=== PATIENT | female | born 1935 | race Caucasian/White ===

== ENCOUNTER 2016-07-19 16:20 | Emergency (ER) | payer BC ==
[~2016-07-19 16:20] MED LIST: ADVAIR INH; AREDS PRESERVISION PO; ATEN25 PO; ATEN50 PO; ATENOLOL; ATENOLOL PO; Advair Diskus INH; COZAAR100 MG PO; FOLIC PO; INHALER; JANTOVEN2.5 MG PO; KLOR-CON 1010 MEQ PO; KLOR-CON M1010 MEQ PO; L40 PO; METAMUCIL CAN7 OZ PO; MTX2.5 PO; NEUR300 PO; PCET PO; PRESER VISION PO; PRILO PO; TREXALL5 MG PO; hydrocortisone TOP; preservision PO-DS
[2016-07-22] MEDS ORDERED: VITAMIN B-121000 MC1 SL (09:03)
[2016-07-22] MEDS ORDERED: CARTIA XT120 MG/24 PO (09:05)
[2016-07-22] MEDS ORDERED: BUM2 PO (09:06)
[2016-07-22] MEDS ORDERED: Z100 PO (09:07)
[2016-07-22] MEDS ORDERED: ELIQUIS 5 MG TAB5 MG PO (09:07)
[2016-07-22] MEDS ORDERED: VITAMIN D2000 UNIT PO (09:08)
[2016-07-22] MEDS ORDERED: ZANTAC150 MG PO (09:10)
[2016-07-22] MEDS ORDERED: PRILOSEC OTC20 MG PO (09:11)
== END 2016-07-19 16:37 | disposition home or self-care (01) ==
LOC: ER 16:20
DX: S09.90XA Unspecified injury of head, initial encounter (principal); S16.1XXA Strain of muscle, fascia and tendon at neck level, initial encounter; S80.811A Abrasion, right lower leg, initial encounter; Z95.0 Presence of cardiac pacemaker; Z88.0 Allergy status to penicillin; Z88.2 Allergy status to sulfonamides; Z79.01 Long term (current) use of anticoagulants; Z79.891 Long term (current) use of opiate analgesic; W01.0XXA Fall on same level from slipping, tripping and stumbling without subsequent striking against object, initial encounter; Y93.9 Activity, unspecified; Y92.012 Bathroom of single-family (private) house as the place of occurrence of the external cause
CPT/HCPCS: 70450; 72040; 99284

== ENCOUNTER 2016-07-24 09:38 | Day surgery (SDC) | payer BC ==
--- NOTE | ~2016-07-24 | EGD ---
EGD REPORT [facility] [address] [id number] NAME: TILA BARAJAS : [birth year] STATUS : REG [facility]#: [id number] AGE: 81 ADM/REG DATE : 07/24/16 MR#: [id number] REPORT SERV DATE: 07/24/16 DICTATED BY: TERRANCE LOPES DATE: 07/24/16 REPORT STATUS : Draft TRANSCRIBED BY: [facility] DATE: 07/24/16 Pulmonology Patient Name: Tila Barajas Procedure Date: 07/24/2016 2:16 PM Date of : 1935 Attending MD: ALIS LOPES MD Procedure Date No Time: 07/24/2016 Procedure: EBUS Navigational Bronchoscopy Indications: VINCE lung nodule, sarcoidosis Providers: ALIS LOPES MD Referring MD: Sol Westbrook Medicines: Lidocaine 2% 20 mL Complications: No immediate complications Procedure: Pre-Anesthesia Assessment: - A History and Physical has been performed. Patient meds and allergies have been reviewed. The risks and benefits of the procedure and the sedation options and risks were discussed with the patient. All questions were answered and informed consent was obtained. Patient identification and proposed procedure were verified prior to the procedure by the physician and the nurse in the pre-procedure area in the procedure room. Mental Status Examination: normal. Respiratory Examination: clear to auscultation. CV Examination: normal and RRR, no murmurs, no S3 or S4. ASA Grade Assessment: IV - A patient with severe systemic disease that is a constant threat to life. After reviewing the risks and benefits, the patient was deemed in satisfactory condition to undergo the procedure. The anesthesia plan was to use general anesthesia. Immediately prior to administration of medications, the patient was re-assessed for adequacy to receive sedatives. The heart rate, respiratory rate, oxygen saturations, blood pressure, adequacy of pulmonary ventilation, and response to care were monitored throughout the procedure. The physical status of the patient was re-assessed after the procedure. After obtaining informed consent, the BF [id number] was introduced through the mouth, via the endotracheal tube (the patient was intubated for the procedure) and advanced to the tracheobronchial tree. the Bronchoscope was introduced through the mouth, via the endotracheal tube (the patient was intubated for the procedure) and advanced to the tracheobronchial tree. The procedure was accomplished without difficulty. The patient tolerated the procedure well. EGD REPORT [address] [address] NAME: TILA BARAJAS : [birth year] STATUS : REG [facility] PAT#: [id number] AGE: 81 ADM/REG DATE : 07/24/16 MR#: [id number] REPORT SERV DATE: 07/24/16 DICTATED BY: TERRANCE LOPES DATE: 07/24/16 REPORT STATUS : Draft TRANSCRIBED BY: [employer] DATE: 07/24/16 Findings: The endotracheal tube is in normal position. The trachea is of normal caliber. The kvng is sharp. The tracheobronchial tree was examined to at least the first subsegmental level. Bronchial mucosa and anatomy are normal; there are no endobronchial lesions, and no secretions. EBUS TBNA of lymph node level 11R x 8 passes for cytology EBUS TBNA of lymph node level 4R x 8 passes for cytology EBUS TBNA of lymph node level 7 x 4 passes for cytology EBUS TBNA of lymph node level 4L x 4 passes for cytology EBUS TBNA of lymph node level 11L x 8 passes for cytology Using SuperDimension Edge catheter 180, peripheral probe EBUS 17s, and fluoroscopy, I performed the following biopsies: VINCE lung nodule transbronchial needle aspirates x 6 passes for cytology VINCE lung nodule transbronchial brush biopsy x 1 pass for cytology VINCE lung nodule transbronchial tri needle brush biopsy x 1 pass for cytology VINCE lung nodule transbronchial gencut x 1 pass for cytology VINCE lung nodule transbronchial forcep biopsies x 7 passes for histopathology Bronchoalveolar lavage was performed in the left upper lobe of the lung and sent for routine cytology. 120 mL of fluid were instilled. 20 mL were returned. The return was bloody. Impression: Rapid On-Site Evaluation (CECE): Preliminary cytology is suggestive of benign inflammatory changes with granulomatous changes. No malignancy seen on site. (final results are pending). Recommendation: - Await test results. - Chest X-ray. - Follow up in clinic. Attending Participation: I personally performed the entire procedure. ALIS LOPES MD 07/24/2016 4:30 PM This report has been signed electronically. Number of Addenda: 0 Note Initiated On: 07/24/2016 2:16 PM [address] [id number]
[~2016-07-24 09:38] MED LIST changes: +BUM2 PO; +CARTIA XT120 MG/24 PO; +ELIQUIS 5 MG TAB5 MG PO; +PRILOSEC OTC20 MG PO; +VITAMIN B-121000 MC1 SL; +VITAMIN D2000 UNIT PO; +Z100 PO; +ZANTAC150 MG PO
[2016-07-24 10:01] LABS: BASOPHILS 0.6 %; BASOPHILS ABSOLUTE 0.04 10/3/uL (0.0-0.16); EOSINOPHILS 6.1 %; EOSINOPHILS ABSOLUTE 0.38 10/3/uL (0.0-0.53); HEMATOCRIT 36.9 % (36.0-48.0); HEMOGLOBIN 11.6 g/dL (12.0-16.0); IMMATURE GRANULOCYTES 0.2 %; IMMATURE GRANULOCYTES ABSOLUTE 0.01 10/3/uL (0.0-0.11); LYMPHOCYTES 22.1 %; LYMPHOCYTES ABSOLUTE 1.37 10/3/uL (0.67-4.30); MEAN CORPUS HGB CONC 31.4 g/dL (32.0-36.0); MEAN CORPUSCULAR HEMOGLOB 29.3 pg (26.0-34.0); MEAN CORPUSCULAR VOLUME 93.2 fL (80-100); MEAN PLATELET VOLUME 10.6 fL (9.2-13.0); MONOCYTES 9.5 %; MONOCYTES ABSOLUTE 0.59 10/3/uL (0.21-1.20); NEUTROPHILS 61.5 %; PLATELET COUNT 191 10/3/uL (150-400); RBC DISTRIBUTION WIDTH 15.9 % (12.0-16.0); RED CELL COUNT 3.96 10/6/uL (4.0-5.6); WHITE BLOOD CELLS 6.2 10/3/uL (4.5-10.5)
[2016-07-24 10:03] LABS: MANUAL DIFF NO %
[2016-07-24 10:12] LABS: INTERNATIONAL NORMAL RATI 1.1 UNITS (-); PARTIAL THROMBO TIME 33.2 SEC (22.5-37.2); PROTIME (NOT ORD) 13.9 SEC (12.0-14.5)
[2016-07-24 10:16] LABS: CALCIUM, SERUM 9.2 MG/DL (8.5-10.4); CHLORIDE, SERUM 107 MMOL/L (96-112); CO2 (CARBON DIOXIDE) 27 MMOL/L (24-34); GFR AFRICAN AMERICAN 61 ML/MIN (>=60); GFR NON AFRICAN AMERICAN 52 ML/MIN (>=60); GLUCOSE, SERUM 111 MG/DL (60-99); SODIUM, SERUM 143 MMOL/L (135-148)
[2016-07-24 10:17] LABS: BUN (BLOOD UREA NITROGEN) 24 MG/DL (6-23)
== END 2016-07-24 20:54 | disposition home or self-care (01) ==
LOC: DMU 09:38
PROVIDERS: Anesthesiology; Internal Medicine
PROC: 07B74ZX Excision of Thorax Lymphatic, Percutaneous Endoscopic Approach, Diagnostic (ICD-10-PCS; principal; 2016-07-24 11:00)
PROC: 0BBG8ZX Excision of Left Upper Lung Lobe, Via Natural or Artificial Opening Endoscopic, Diagnostic (ICD-10-PCS; 2016-07-24 11:00)
DX: C34.12 Malignant neoplasm of upper lobe, left bronchus or lung (principal); D86.0 Sarcoidosis of lung; I10 Essential (primary) hypertension; M06.9 Rheumatoid arthritis, unspecified; M10.9 Gout, unspecified; Z95.0 Presence of cardiac pacemaker; Z88.0 Allergy status to penicillin; Z88.2 Allergy status to sulfonamides; Z79.01 Long term (current) use of anticoagulants; Z79.899 Other long term (current) drug therapy
CPT/HCPCS: 71010; 80048; 85025; 85610; 85730; 88112; 88172; 88173; 88177; 88305; 88333; 88334; 93005; 94640; A9270-GY; C1725; C1769; J2370; J2405; J2710; J3010